=== PATIENT | female | born 1985 | race Caucasian/White ===

== ENCOUNTER 2017-03-08 07:46 | Emergency (ER) | payer OTHER ==
[~2017-03-08] VITALS: Ht 157.5 cm; Wt 79.4 kg
[~2017-03-08 07:46] MED LIST: ACET325T9 PO; CEPH-264 PO; DIPH25CA58 PO; ONDA4TAB10 SL; PREN1TAB58 PO; SERT25TA PO
[2017-03-08] MEDS ORDERED: IV NORMAL SALINE 1,000ML 1,000 ML IV SCH (08:14)
[2017-03-08 08:21] LABS: BASO % 1 % (0-3); EOS # 0.2 x10^3/uL (0.0-0.7); EOS % 3 % (0-3); HEMATOCRIT 41.3 % (36.0-47.0); HEMOGLOBIN 14.2 g/dL (12.0-15.5); LYMPH # 2.5 x10^3/uL (1.0-4.8); LYMPH % 36 % (24-48); MEAN CORPUSCULAR HEMOGLOBIN 32 pg (25-35); MEAN CORPUSCULAR HGB CONC 34 g/dL (31-37); MEAN CORPUSCULAR VOLUME 94 fL (79-100); MONO # 0.7 x10^3/uL (0.0-1.1); MONO % 10 % (0-9); NEUT # 3.6 x10^3uL (1.8-7.7); NEUT % 51 % (31-73); PLATELET COUNT 266 x10^3/uL (140-400); RED BLOOD COUNT 4.42 x10^6/uL (3.50-5.40); RED CELL DISTRIBUTION WIDTH 13.2 % (11.5-14.5); WHITE BLOOD COUNT 7.1 x10^3/uL (4.0-11.0)
[2017-03-08 08:31] LABS: ALBUMIN 3.8 g/dL (3.4-5.0); ALBUMIN/GLOBULIN RATIO 0.9 (1.0-1.7); CALCIUM 8.8 mg/dL (8.5-10.1); CREATININE 0.7 mg/dL (0.6-1.0); GFR 98.9; POTASSIUM 3.5 mmol/L (3.5-5.1); TOTAL BILIRUBIN 0.2 mg/dL (0.2-1.0)
--- NOTE | 2017-03-08 09:55 | EKG ---
[facility] ED 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
--- NOTE | 2017-03-08 10:13 | PHYS DOC ---
Past History Past Medical History: Depression, Other Additional Past Medical Histor: SVT Past Surgical History: , Other Smoking: Non-smoker Alcohol Use: None Drug Use: Marijuana Adult General Chief Complaint Chief Complaint: Palpitations HPI HPI Patient is a 31-year-old female brought to the ED by her with multiple complaints. Patient states that yesterday she had some pain in the upper left thigh that was "very deep" it occurred yesterday morning and is now completely gone. Today, she is feeling some heart palpitations that she cannot describe very well but do not feel like SVT. She states "my whole body feels numb, like you get when the inject CT dye, I just don't feel well." Patient has a history of SVT, she states "they had to stop my her twice", on further discussion it sounds like she had adenosine twice in 2009 for SVT. She states "my newspaper reporter wants to give me a heart catheter". Currently she is not on any kind of medication to suppress SVT and she has not had any ablation, etc. Patient also states a history of a "blood clot", but on further discussion, she states that she was seen here once, they gave her a shot of Lovenox, they did a CT scan, then they didn't put her on any blood thinners. It sounds like she has never been on any type of anticoagulation so unlikely that she actually had a DVT. States that 2 days ago she was started on Macrobid for a UTI. This was prescribed because she had some back pain which is now going away. She has taken 3 doses of Macrobid. She wonders if it could be a "reaction" to Macrobid. She saw Dr. Duncan for this, in the office where she usually sees her primary care provider, Lisha DO. Review of Systems Review of Systems Constitutional: Denies fever or chills but she feels unwell generally HENT: Denies nasal congestion or sore throat [] Respiratory: Denies cough or shortness of breath specifically Cardiovascular: As in history of present illness GI: Denies abdominal pain, nausea, vomiting, bloody stools or diarrhea [] : Denies dysuria or hematuria , she was diagnosed with a UTI after the complaint of back pain Integument: Denies rash or skin lesions [] Neurologic: As in history of present illness Current Medications Current Medications Current Medications Medications (Trade) Dose Ordered Sig/Alejandra Start Time Stop Time Status Last Admin Dose Admin Sodium Chloride 1,000 ml @ 1,000 mls/hr Q1H 03/08/17 08:14 03/08/17 09:13 DC 03/08/17 08:14 1,000 MLS/HR Allergies Allergies Allergies Coded Allergies Type Severity Reaction Last Updated Verified No Known Drug Allergies 06/19/14 No Physical Exam Physical Exam Constitutional: Well developed, well nourished, no acute distress, non-toxic appearance. Alert, mentating normally, warm and dry, vital signs entirely stable and normal. Pulse ox on room air 97%. HENT: Normocephalic, atraumatic, bilateral external ears normal, nose normal. [] Eyes: conjunctiva normal, no discharge. [] Neck: Normal range of motion, no stridor. [] Cardiovascular:Heart rate regular rhythm, no murmur [] Lungs & Thorax: Bilateral breath sounds clear to auscultation [] Abdomen: Bowel sounds normal, soft, no tenderness, no masses, no pulsatile masses. [] Skin: Warm, dry, no erythema, no rash. [] Extremities: No tenderness, no cyanosis, no clubbing, ROM intact, no edema. [] Neurologic: Alert and oriented X 3, normal motor function, no focal deficits noted. [] Current Patient Data Vital Signs Vital Signs Date Time Temp Pulse Resp B/P (MAP) Pulse Ox O2 Delivery O2 Flow Rate FiO2 03/08/17 09:00 69 16 141/70 (93) 100 Room Air Lab Results Laboratory Tests Test 03/08/17 07:55 White Blood Count 7.1 x10^3/uL (4.0-11.0) Red Blood Count 4.42 x10^6/uL (3.50-5.40) Hemoglobin 14.2 g/dL (12.0-15.5) Hematocrit 41.3 % (36.0-47.0) Mean Corpuscular Volume 94 fL (79-100) Mean Corpuscular Hemoglobin 32 pg (25-35) Mean Corpuscular Hemoglobin Concent 34 g/dL (31-37) Red Cell Distribution Width 13.2 % (11.5-14.5) Platelet Count 266 x10^3/uL (140-400) Neutrophils (%) (Auto) 51 % (31-73) Lymphocytes (%) (Auto) 36 % (24-48) Monocytes (%) (Auto) 10 % (0-9) H Eosinophils (%) (Auto) 3 % (0-3) Basophils (%) (Auto) 1 % (0-3) Neutrophils # (Auto) 3.6 x10^3uL (1.8-7.7) Lymphocytes # (Auto) 2.5 x10^3/uL (1.0-4.8) Monocytes # (Auto) 0.7 x10^3/uL (0.0-1.1) Eosinophils # (Auto) 0.2 x10^3/uL (0.0-0.7) Basophils # (Auto) 0.0 x10^3/uL (0.0-0.2) Sodium Level 138 mmol/L (136-145) Potassium Level 3.5 mmol/L (3.5-5.1) Chloride Level 103 mmol/L (98-107) Carbon Dioxide Level 26 mmol/L (21-32) Anion Gap 9 (6-14) Blood Urea Nitrogen 13 mg/dL (7-20) Creatinine 0.7 mg/dL (0.6-1.0) Estimated GFR (Cockcroft-Gault) 98.9 BUN/Creatinine Ratio 19 (6-20) Glucose Level 102 mg/dL (70-99) H Calcium Level 8.8 mg/dL (8.5-10.1) Total Bilirubin 0.2 mg/dL (0.2-1.0) Aspartate Amino Transferase (AST) 32 U/L (15-37) Alanine Aminotransferase (ALT) 73 U/L (14-59) H Alkaline Phosphatase 80 U/L (46-116) Total Protein 8.0 g/dL (6.4-8.2) Albumin 3.8 g/dL (3.4-5.0) Albumin/Globulin Ratio 0.9 (1.0-1.7) L EKG EKG 12-lead EKG read by me. Sinus rhythm. Heart rate 91. There are no acute ST or T wave changes indicative of ischemia or infarction. One PVC. No STEMI. 0754[] Radiology/Procedures Radiology/Procedures [] Course & Med Decision Making Course & Med Decision Making Pertinent Labs and Imaging studies reviewed. (See chart for details) 31-year-old female presents with multiple nonspecific complaints. Labs were obtained and are unremarkable. She was monitored and she did have PVCs which I don't believe were symptomatic. Some of her PVCs were couplets and triplets. Patient and her mother watched the registered nurse cardiac telemetry carefully and had a lot of questions and concerns about the PVCs so it is hard to distinguish whether they were or were not symptomatic. I reviewed the patient's record. Despite giving an initial history of "a blood clot", she was seen here in 2014 and her symptoms lead to a D-dimer test which was 0.51, she then had CT angiography which was negative for pulmonary embolism. The patient in fact does not have a history of DVT or PE. I reassured the patient and went over her normal results. I believe the patient is stable for discharge. Some of her complaints may be related to hyperventilation, I discussed that with the patient. See instructions for plan. [] Dragon Disclaimer Dragon Disclaimer This chart was dictated in whole or in part using Voice Recognition software in a busy, high-work load, and often noisy Emergency Department environment. It may contain unintended and wholly unrecognized errors or omissions. Departure Departure: Impression: Primary Impression: Heart palpitations Additional Impression: Numbness Disposition: 01 HOME, SELF-CARE Condition: STABLE Referrals: ZAC SANCHEZ (PCP) Patient Instructions: Hyperventilation, Palpitations, [id number] Additional Instructions: As we discussed, lab tests today were normal. EKG was normal. We noted that you are having occasional PVCs, premature ventricular contractions. As we discussed , that is not harmful in a young healthy person but symptoms might be unpleasant. Discuss this with your newspaper reporter. As we discussed, we did not find any cause for your symptoms of numbness, which is reassuring. Sometimes this is caused by unintentionally hyperventilating. If this symptom is bothering you, try intentionally not breathing deep or fast to see if this will help. Problem Qualifiers JUSTINA MAC MD Mar 08, 2017 10:13
[2017-03-08 10:19] VITALS: BP 155/87
== END 2017-03-08 10:28 | disposition home or self-care (01) ==
LOC: ER 07:46
DX: R00.2 Palpitations (principal); R20.0 Anesthesia of skin; M79.652 Pain in left thigh; Z87.440 Personal history of urinary (tract) infections
CPT/HCPCS: 36415; 80053; 85025; 93005; 96360; 99285-25; J7030

== ENCOUNTER 2017-04-11 01:50 | Emergency (ER) | payer OTHER ==
[~2017-04-11] VITALS: Ht 157.5 cm; Wt 78.3 kg
--- NOTE | 2017-04-11 02:05 | PHYS DOC ---
Past History Past Medical History: Depression, Other Additional Past Medical Histor: SVT Past Surgical History: , Other Smoking: Non-smoker Alcohol Use: None Drug Use: Marijuana Adult General HPI HPI Patient is a 31 year old F who presents with shortness of breath. Patient states approximately 3 PM yesterday she developed a fever with shortness of breath that has persisted and woke her up tonight. On April 02 approximately week and a half ago patient had a lapse A done [facility]. Patient states tonight she woke up and cannot take a big deep breath and it hurts to breathe. Patient denies any abdominal pain. Patient denies any chest pain. Patient denies any nausea/vomiting/ diarrhea. Review of Systems Review of Systems GEN: Denies fevers, chills, sweats HEENT: Denies blurred vision, sore throat CV: Denies chest pain RESP: Difficult breathing GI: Denies n/v/d NEURO: Denies confusion, dizziness MSK: Denies weakness, joint pain/swelling Allergies Allergies Allergies Coded Allergies Type Severity Reaction Last Updated Verified No Known Drug Allergies 06/19/14 No Physical Exam Physical Exam GEN.: Mod distress. Alert and oriented. HEENT: Head is normocephalic, atraumatic NECK: Supple. LUNGS: Shallow respirations, decreased air movement at the bases bilaterally HEART: RRR, S1, S2 present. Peripheral pulses intact ABDOMEN: Soft, mild generalized abdominal tenderness secondary to recent laparoscopic procedure. Positive bowel sounds. EXTREMITIES: Without any cyanosis. NEUROLOGIC: Normal speech, normal tone PSYCHIATRIC: Normal affect, normal mood. SKIN: No ulcerations Current Patient Data Vital Signs Laboratory Tests Test 04/11/17 02:15 White Blood Count 13.3 x10^3/uL Red Blood Count 3.57 x10^6/uL Hemoglobin 11.7 g/dL Hematocrit 33.0 % Mean Corpuscular Volume 93 fL Mean Corpuscular Hemoglobin 33 pg Mean Corpuscular Hemoglobin Concent 36 g/dL Red Cell Distribution Width 12.6 % Platelet Count 244 x10^3/uL Neutrophils (%) (Auto) 73 % Lymphocytes (%) (Auto) 16 % Monocytes (%) (Auto) 8 % Eosinophils (%) (Auto) 3 % Basophils (%) (Auto) 0 % Neutrophils # (Auto) 9.7 x10^3uL Lymphocytes # (Auto) 2.2 x10^3/uL Monocytes # (Auto) 1.0 x10^3/uL Eosinophils # (Auto) 0.4 x10^3/uL Basophils # (Auto) 0.0 x10^3/uL Sodium Level 139 mmol/L Potassium Level 3.8 mmol/L Chloride Level 101 mmol/L Carbon Dioxide Level 29 mmol/L Anion Gap 9 Blood Urea Nitrogen 11 mg/dL Creatinine 0.7 mg/dL Estimated GFR (Cockcroft-Gault) 98.9 BUN/Creatinine Ratio 16 Glucose Level 111 mg/dL Lactic Acid Level 1.5 mmol/L Calcium Level 8.9 mg/dL Total Bilirubin 0.3 mg/dL Aspartate Amino Transf (AST/SGOT) 14 U/L Alanine Aminotransferase (ALT/SGPT) 21 U/L Alkaline Phosphatase 83 U/L Troponin I Quantitative < 0.017 ng/mL Total Protein 7.4 g/dL Albumin 3.4 g/dL Albumin/Globulin Ratio 0.9 Lipase 64 U/L Current Medications Medications (Trade) Dose Ordered Sig/Alejandra Route PRN Reason Start Time Stop Time Status Last Admin Dose Admin Iohexol (Omnipaque 300 Mg/ml) 75 ml 1X ONCE IV 04/11/17 02:30 04/11/17 02:31 DC 04/11/17 02:18 Info (Do NOT chart on this entry -- for MONITORING) 1 each PRN DAILY PRN MC SEE COMMENTS 04/11/17 02:15 04/13/17 02:14 Sodium Chloride 1,000 ml @ 1,000 mls/hr 1X ONCE IV 04/11/17 03:30 04/11/17 04:29 DC 04/11/17 03:15 Fentanyl Citrate (Fentanyl 2ml Vial) 50 mcg 1X ONCE IV 04/11/17 03:30 04/11/17 03:31 DC 04/11/17 03:15 Hydromorphone HCl (Dilaudid) 1 mg 1X ONCE IV 04/11/17 04:30 04/11/17 04:31 Heparin Sodium/ Dextrose 500 ml @ 0 mls/hr CONT PRN IV SEE I/O RECORD 04/11/17 04:15 Heparin Sodium (Porcine) (Heparin Sodium) 5,800 unit 1X ONCE IV 04/11/17 04:30 04/11/17 04:31 Heparin Sodium (Porcine) (Heparin Sodium) 2,000 unit PRN Q6HRS PRN IV FOLLOW PROTOCOL GUIDELINES 04/11/17 04:15 Heparin Sodium (Porcine) (Heparin Sodium) 1,000 unit PRN Q6HRS PRN IV FOLLOW PROTOCOL GUIDELINES 04/11/17 04:15 EKG EKG 0213: EKG shows normal sinus rhythm rate of 94 no STEMI[] Radiology/Procedures Radiology/Procedures CTA chest, abdomen pelvis MPRESSION: 1. Bilateral pulmonary embolus is identified. 2. Mild groundglass and patchy opacities at lung bases. Could be secondary to airway inflammation or hemorrhage from the patient's pulmonary embolus although atelectasis or infiltrate is also within the differential. 3. There is some suspected blood within the pelvis. 4. There is some wall thickening of the urinary bladder. Portion this could be secondary to lack of distention but pathologic causes such as cystitis are within the differential. 5. Low attenuation of the liver. Nonspecific but frequently secondary to fatty infiltration. [] Course & Med Decision Making Course & Med Decision Making Pertinent Labs and Imaging studies reviewed. (See chart for details) ED course: Patient was seen and examined emergency room CBC, CMP, troponin, UA, CTA chest/ abdomen/pelvis were ordered along with EKG 0335: Dr. Carlyle Washington the radiologist called stating the patient has bilateral PEs with blood in her abdomen. 0340: Discussed results with the patient and the need to transfer the patient to another hospital. Patient requests to go back to [facility] 0348: Called [facility] transfer center. 0350: Will hold on giving the patient blood thinners at this time since there is blood in the abdomen and will confer with medicine team. 0357: Discussed CC/HP/PMH with Dr. Mcbride and recommends admit to the hospitalist with [facility] on consult. Dr. Mcbride recommended heparin and did not feel that the blood in the abdomen was a surgical emergency at this time. 0423: Dr. Mir has accepted the patient at [facility] 0428: We'll give the patient 1 g of Rocephin for most likely a UTI, patient had urinary retention postop secondary to the anesthesia has had difficulty urinating ever since. Patient states she has increase urgency but nothing comes out. Patient's bladder wall on the CT scan is thickened which is consistent with cystitis. Critical care time was 35 minutes exclusive of procedures. [] Dragon Disclaimer Dragon Disclaimer This chart was dictated in whole or in part using Voice Recognition software in a busy, high-work load, and often noisy Emergency Department environment. It may contain unintended and wholly unrecognized errors or omissions. Departure Departure: Impression: Primary Impression: Pulmonary embolus, left Additional Impressions: Pulmonary embolus, right Hemoperitoneum (nontraumatic) Disposition: 02 XFER [facility] (Dr. Mir @ [facility]) Condition: STABLE Referrals: ZAC SANCHEZ (PCP) Problem Qualifiers RONAL RICKS DO Apr 11, 2017 02:05
[2017-04-11] MEDS ORDERED: CONTRAST GIVEN MC PRN (02:15)
--- NOTE | 2017-04-11 02:22 | EKG ---
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
[2017-04-11] MEDS ORDERED: IOHEXOL 300 MG/ML 75 ML VIAL. IV ONE (02:30)
[2017-04-11] MEDS ORDERED: ambien (02:34)
[2017-04-11] MEDS ORDERED: estrogen patch (02:34)
[2017-04-11] MEDS ORDERED: zoloft (02:34)
[2017-04-11] MEDS ORDERED: ibuprofen (02:34)
[2017-04-11] MEDS ORDERED: metoprolol (02:34)
[2017-04-11] MEDS ORDERED: tylenol (02:34)
[2017-04-11 02:42] LABS: BASO % 0 % (0-3); EOS # 0.4 x10^3/uL (0.0-0.7); EOS % 3 % (0-3); HEMOGLOBIN 11.7 g/dL (12.0-15.5); LYMPH # 2.2 x10^3/uL (1.0-4.8); LYMPH % 16 % (24-48); MEAN CORPUSCULAR HEMOGLOBIN 33 pg (25-35); MEAN CORPUSCULAR HGB CONC 36 g/dL (31-37); MEAN CORPUSCULAR VOLUME 93 fL (79-100); MONO % 8 % (0-9); NEUT # 9.7 x10^3uL (1.8-7.7); NEUT % 73 % (31-73); PLATELET COUNT 244 x10^3/uL (140-400); RED BLOOD COUNT 3.57 x10^6/uL (3.50-5.40); RED CELL DISTRIBUTION WIDTH 12.6 % (11.5-14.5); WHITE BLOOD COUNT 13.3 x10^3/uL (4.0-11.0)
[2017-04-11 02:47] LABS: ALBUMIN 3.4 g/dL (3.4-5.0); ALBUMIN/GLOBULIN RATIO 0.9 (1.0-1.7); CALCIUM 8.9 mg/dL (8.5-10.1); CREATININE 0.7 mg/dL (0.6-1.0); GFR 98.9; POTASSIUM 3.8 mmol/L (3.5-5.1); TOTAL BILIRUBIN 0.3 mg/dL (0.2-1.0); TOTAL PROTEIN 7.4 g/dL (6.4-8.2)
[2017-04-11] MEDS ORDERED: IV NORMAL SALINE 1,000ML 1,000 ML IV ONE ×2 (03:30→05:30)
--- NOTE | 2017-04-11 03:41 | RAD ---
INDICATION: Chest and abdomen pain COMPARISON: April 05, [address] TECHNIQUE: Axial CT images were obtained through the chest, abdomen and pelvis with intravenous contrast. Reformats processed of chest including 3-D per angiogram protocol. One or more of the following individualized dose reduction techniques were utilized for this examination: 1. Automated exposure control; 2. Adjustment of the mA and/or kV according to patient size; 3. Use of iterative reconstruction technique. FINDINGS: Chest: No evidence of pneumothorax. Mild groundglass opacities and patchy airspace opacity at left greater than right lung base. Small pericardial fluid. Ascending thoracic aorta is partially obscured by motion but no thoracic aortic aneurysm or definite dissection flap is seen. Soft tissue density anterior mediastinum, given the patient's age could be from residual thymus. Bilateral pulmonary embolus is identified affecting multiple lobes. This does not extend into the main pulmonary artery. ABDOMEN: Trace pleural effusions at lung base. Abdominal aorta is not aneurysmal. Liver is low-attenuation. Gallbladder is largely contracted. No peripancreatic edema. Spleen unremarkable. No hydronephrosis. Bladder is largely decompressed. There is some free fluid seen in the pelvis which measures subtle high attenuation. The suspected appendix measures up to about 8 mm. No dilated loops of bowel to suggest obstruction. IMPRESSION: 1. Bilateral pulmonary embolus is identified. 2. Mild groundglass and patchy opacities at lung bases. Could be secondary to airway inflammation or hemorrhage from the patient's pulmonary embolus although atelectasis or infiltrate is also within the differential. 3. There is some suspected blood within the pelvis. 4. There is some wall thickening of the urinary bladder. Portion this could be secondary to lack of distention but pathologic causes such as cystitis are within the differential. 5. Low attenuation of the liver. Nonspecific but frequently secondary to fatty infiltration. 6. The suspected appendix is mildly dilated up to approximately 8 mm but there is not definite adjacent inflammation at this time. Report called to the ER at 3:35 AM on date of exam. Electronically signed by: Carlyle Washington MD (04/11/2017 3:37 AM) [facility]
[2017-04-11] MEDS ORDERED: HEPARIN for IV BOLUS 10,000 UNIT/10 ML VIAL. IV PRN ×2 (04:15)
[2017-04-11] MEDS ORDERED: HEPARIN 25,000UTS/500ML PREMIX 500 ML IV PRN (04:15)
[2017-04-11] MEDS ORDERED: HYDROmorphone PF 1 MG/ML DISP.SYRIN IV ONE (04:30)
[2017-04-11] MEDS ORDERED: HEPARIN for IV BOLUS 10,000 UNIT/10 ML VIAL. IV ONE (04:30)
[2017-04-11] MEDS ORDERED: IV NORMAL SALINE 50ML 50 ML ONE (04:57)
[2017-04-11] MEDS ORDERED: cefTRIAXone SODIUM 1 GM VIAL IV ONE (04:57)
[2017-04-11 04:58] LABS: BACTERIA,URINE FEW /HPF (0-FEW); BILIRUBIN,URINE NEG (NEG); CLARITY,URINE HAZY; COLOR,URINE YELLOW; GLUCOSE,URINE NEG (NEG); NITRITE,URINE NEG (NEG); RBC,URINE 0 /HPF (0-2); SQUAMOUS EPITHELIAL CELL,UR MOD /LPF; UROBILINOGEN,URINE 0.2 mg/dL (0.2 mg/dL); WBC,URINE RARE /HPF (0-4)
[2017-04-11 05:20] VITALS: BP 103/57
== END 2017-04-11 05:39 | disposition short-term general hospital (02) ==
LOC: ER 01:50
DX: I26.99 Other pulmonary embolism without acute cor pulmonale (principal); K66.1 Hemoperitoneum; F12.10 Cannabis abuse, uncomplicated
CPT/HCPCS: 36415; 71275; 74177; 80053; 81001; 83605; 83690; 84484; 85025; 87040; 93005; 96361; 96365; 96368; 96375; 99291; J0696; J1170; J1644; J3010; Q9967; J7030

== ENCOUNTER 2018-04-09 16:11 | Emergency (ER) | payer OTHER ==
[~2018-04-09 16:11] MED LIST changes: +ambien; +estrogen patch; +ibuprofen; +metoprolol; +tylenol; +zoloft
[2018-04-09 16:26] VITALS: BP 162/90
[2018-04-09] MEDS ORDERED: HYDR50CA2 PO (16:41)
--- NOTE | 2018-04-09 16:49 | ED.ADGEN ---
Past History Past Medical History: Anxiety, Arrhythmia Additional Past Medical Histor: SVT Past Surgical History: Hysterectomy Smoking: Non-smoker Alcohol Use: None Drug Use: Marijuana Adult General Chief Complaint Chief Complaint Palpitations HPI HPI Patient is a 32-year-old female with history of anxiety was started on Lexapro presents with palpitations intermittent the past 2-3 days. Patient also reports tingling in hands and face occurring around and increasing anxiety. Patient is a process of moving out of state with her 6 children ages 2 through 8. Patient had recent outpatient labs 2 days ago which she reports is normal. No chest pain shortness of breath. No other acute symptoms or complaints.[] Review of Systems Review of Systems ROS as per HPI All other systems were reviewed and found to be within normal limits, except as documented in this note. Allergies Allergies Allergies Coded Allergies Type Severity Reaction Last Updated Verified No Known Drug Allergies 04/11/17 No Physical Exam Physical Exam Constitutional: Well developed, well nourished, no acute distress, non-toxic appearance. [] HENT: Normocephalic, atraumatic, bilateral external ears normal, oropharynx moist, no oral exudates, nose normal. [] Eyes: PERRLA, EOMI, conjunctiva normal, no discharge. [] Neck: Normal range of motion, no tenderness, supple, no stridor. [] Cardiovascular: Regular rate and rhythm, occasional ectopy, and Homans signs..[] Lungs & Thorax: Bilateral breath sounds clear to auscultation [] Abdomen: Bowel sounds normal, soft, no tenderness. [] Skin: Warm, dry, no erythema, no rash. [] Back: No tenderness, no CVA tenderness. [] Extremities: No tenderness, no cyanosis, no clubbing, ROM intact, no edema. [] Neurologic: Alert and oriented X 3, normal motor function, normal sensory function. [] Psychologic: Affect, anxious. [] Current Patient Data Vital Signs Vital Signs Date Time Temp Pulse Resp B/P (MAP) Pulse Ox O2 Delivery O2 Flow Rate FiO2 04/09/18 16:26 97.4 79 16 99 EKG EKG [] Radiology/Procedures Radiology/Procedures [] Course & Med Decision Making Course & Med Decision Making Pertinent Labs and Imaging studies reviewed. (See chart for details) [Patient observed on monitor with normal Sinus rhythm with only occasional ectopy 3-5 PVC's per minute.] Final Impression Final Impression [1. Palpitations 2. PVC's 3. Anxiety state] Dragcale[employer] Disclaimer Dragon Disclaimer This electronic medical record was generated, in whole or in part, using a voice recognition dictation system. KATARZYNA TEJEDA DO Apr 09, 2018 16:49
== END 2018-04-09 16:53 | disposition home or self-care (01) ==
LOC: ER 16:11
DX: F41.9 Anxiety disorder, unspecified (principal); I49.3 Ventricular premature depolarization; R00.2 Palpitations
CPT/HCPCS: 99284